=== PATIENT | female | born 1985 | race Caucasian/White ===

== ENCOUNTER 2022-09-17 06:18 | Day surgery (SDC) | payer OTHER ==
[~2022-09-17 06:18] MED LIST: Lactated Ringers 1,000 ML IV SCH; Sodium Chloride 0.9% 10 ML Syringe FLUSH PRN
[2022-09-17] MEDS ORDERED: Midazolam 1 MG/ML 2 ML SDV IV ONE (06:19)
[2022-09-17] MEDS ORDERED: Ondansetron 4 MG/2 ML SDV IVPUSH ONE (06:19)
[2022-09-17] MEDS ORDERED: fentaNYL 100 MCG/2 ML SDV IV ONE (06:19)
[2022-09-17] MEDS ORDERED: Propofol 200 MG/20 ML SDV IV ONE (06:19)
[2022-09-17] MEDS ORDERED: Dexamethasone 4 MG/ML 5 ML MDV IVPUSH ONE (06:19)
[2022-09-17] MEDS ORDERED: Dexmedetomidine 200 MCG/2 ML SDV IV ONE (06:19)
[2022-09-17] MEDS ORDERED: ceFAZolin 2 GM Vial IVPUSH ONE (07:30)
[2022-09-17] MEDS ORDERED: ceFAZolin 2 GM in Sodium Chloride 0.9% 100 ML IV ONE (07:30)
[2022-09-17] MEDS ORDERED: Bupivacaine 0.5% 30 ML SDV INJECT ONE (07:49)
[2022-09-17] MEDS ORDERED: Lidocaine 1% with EPINEPHrine 1:100,000 20 ML MDV INJECT ONE (07:50)
== END 2022-09-17 09:55 | disposition home or self-care (01) ==
LOC: FB.SDS 06:18
PROVIDERS: ATTEND Surgery
DX: K43.6 Other and unspecified ventral hernia with obstruction, without gangrene (principal); J45.909 Unspecified asthma, uncomplicated; D64.9 Anemia, unspecified; F32.A Depression, unspecified; I10 Essential (primary) hypertension; F17.210 Nicotine dependence, cigarettes, uncomplicated; Z79.899 Other long term (current) drug therapy; Z88.2 Allergy status to sulfonamides; Z98.890 Other specified postprocedural states
CPT/HCPCS: 00832-QZ; 81025; 88302; J0690; J1100; J2250; J2405; J2704; J3010; J3490; J7120

== ENCOUNTER 2024-07-28 07:33 | Day surgery (SDC) | payer OTHER ==
[~2024-07-28 07:33] MED LIST changes: -Lactated Ringers 1,000 ML IV SCH
[2024-07-28] MEDS ORDERED: Midazolam 1 MG/ML 2 ML SDV IV ONE (07:34)
[2024-07-28] MEDS ORDERED: Propofol 200 MG/20 ML SDV IV ONE (07:34)
[2024-07-28] MEDS ORDERED: Lidocaine 2% 100 MG/5 ML Syringe IVPUSH ONE (07:34)
[2024-07-28] MEDS ORDERED: Glycopyrrolate 0.2 MG/ML 5 ML MDV IV ONE (07:34)
[2024-07-28] MEDS: Lactated Ringers 1,000 ML IV SCH (09:05)
[2024-07-28] MEDS: Simethicone Drops 40 MG/0.6 ML 30 ML Bottle ONE (09:30)
== END 2024-07-28 10:42 | disposition home or self-care (01) ==
LOC: FB.SDS 07:33
PROVIDERS: ATTEND Surgery
DX: D12.6 Benign neoplasm of colon, unspecified (principal); J45.909 Unspecified asthma, uncomplicated; F17.210 Nicotine dependence, cigarettes, uncomplicated
CPT/HCPCS: 00811; 45385; 88305; A9270; J1596; J2250; J2704; J7120